=== PATIENT | female | born 2000 | race Caucasian/White ===

== ENCOUNTER 2020-10-09 06:40 | Inpatient (IN) | payer SELFPAY ==
[2020-10-09] VITALS (14 sets, daily range): BP systolic 103–132; BP diastolic 55–72; PULSE 72–106; RESP 14; TEMP 36.7–37.3; O2SAT 98–100; BMI 28.2
[2020-10-09] MEDS: Lactated Ringers 1,000 ML 50 ML IV (06:28)
[2020-10-09 06:59] LABS: Absolute Lymphocyte Count 0.94 X10^3/uL (0.83-4.51); Absolute Neutrophil Count 8.2 X10^3/uL (2.0-7.7); Basophil# 0.02 X10^3/uL; Basophil% 0.2 % (0-1); Eosinophil# 0.01 X10^3/uL; Eosinophils% 0.1 % (0-5); Hematocrit 38.1 % (37-47); Hemoglobin 12.9 g/dL (12.0-15.0); Lymphocyte # 0.94 X10^3/ul (4.0); Lymphocyte % 9.6 % (19-41); Mean Corp Hgb Conc 33.9 g/dL (32-36); Mean Corpuscular Hgb 31.8 pg (27.0-32.0); Mean Corpuscular Volume 93.8 fL (81-99); Mean Platelet Vol. 10.8 fl (6.2-12.0); Monocyte# 0.56 X10^3/uL; Monocyte% 5.7 % (0-10); NRBC Flagged by Analyzer 0 % (0-5); Neutrophil # 8.23 X10^3/uL (2.7-7.7); Neutrophil % 83.8 % (47-70); Platelet Count 179 K/mm3 (150-450); RBC Distribution Width CV 12.3 % (11.6-14.6); RBC Distribution Width SD 42.5 fl (35.1-43.9); Red Blood Count 4.06 M/mm3 (4.2-5.4); White Blood Count 9.8 K/mm3 (4.4-11.0)
[2020-10-09 08:14] LABS: Rubella IgG Non-Reactive (Nonreactive); Syphilis Antibodies Non-reactive
--- NOTE | 2020-10-09 08:22 | HP.PCM_ITS ---
- Problem List (1) Polyhydramnios Status: Acute (2) Active labor Status: Acute (3) Limited care Status: Acute History Date of Admission: 10/09/20 Final ANNIKA: 10/20/20 Final ANNIKA Source: LMP Gestational age: 38 Weeks and 3 Days History of this : This is a 20 year-old, G , P 1, at 38 weeks gestational age presents in active labor. Presents after her seat installer came to evaluate her in labor and felt that her abdomen was extremely large suggesting either a large baby or the possibility of a twin gestation. Reports started ruthy at 1 AM. Was last called 4 cm by her seat installer. Allergies No Known Allergies Allergy (Verified 10/09/20 06:21) Home Medications: Home Medications Calcium 1 tab PO DAILY 10/09/20 Prenatabs FA 1 tab PO DAILY 10/09/20 Vitamin E 1 tab PO DAILY 10/09/20 Smoking Status: Never smoker Alcohol: None Number of Fetus(es): 1 NST - FHR Rate Baby A Baseline: 130 Variability:: Moderate Accelerations:: 15 x 15 Decelerations:: None NST Reactive:: Yes FHR Category:: Category I Uterine Activity:: Every 2-3 minutes History Past Pregnancies: Past Pregnancies Delivery Date Name GA/ Weeks Outcome Route Wt Infant Sex Labor Length Anesthesia Delivery Location Provider FOB Labs: Labs 10/09/20 06:28 WBC 9.8 RBC 4.06 L Hgb 12.9 Hct 38.1 MCV 93.8 MCH 31.8 MCHC 33.9 RDW Std Deviation 42.5 RDW Coeff of Jose Alfredo 12.3 Plt Count 179 MPV 10.8 Immature Gran % (Auto) 0.600 Neut % (Auto) 83.8 H Lymph % (Auto) 9.6 L [place] % (Auto) 5.7 Eos % (Auto) 0.1 Baso % (Auto) 0.2 Absolute Neuts (auto) 8.2 H Absolute Lymphs (auto) 0.94 Nucleated RBC % 0 Mom's Microbiology 10/09/20 Unknown Genital vaginal Group B Streptococcus Culture - Pending 10/09/20 06:28 Mucosa - Nose SARS-CoV-2 Antigen (Rapid) - Final Mom's Labs & Results 10/09/20 10/09/20 10/09/20 06:28 06:28 06:28 WBC 9.8 RBC 4.06 L Hgb 12.9 Hct 38.1 MCV 93.8 MCH 31.8 MCHC 33.9 RDW Std Deviation 42.5 RDW Coeff of Jose Alfredo 12.3 Plt Count 179 MPV 10.8 Immature Gran % (Auto) 0.600 Neut % (Auto) 83.8 H Lymph % (Auto) 9.6 L [place] % (Auto) 5.7 Eos % (Auto) 0.1 Baso % (Auto) 0.2 Absolute Neuts (auto) 8.2 H Absolute Lymphs (auto) 0.94 Nucleated RBC % 0 Hemoglobin A1c Syphilis Total Ab Non-reactive Chlam trachomat DNA PCR Hep Bs Antigen Hepatitis C Antibody HIV 1&2 Antibody N.gonorrhoeae DNA (PCR) Rubella IgG Antibody Non-Reactive Group B Strep DNA Specimen Comment Blood Type Pending Antibody Screen Pending 10/09/20 10/09/20 10/09/20 06:28 06:28 06:28 WBC RBC Hgb Hct MCV MCH MCHC RDW Std Deviation RDW Coeff of Jose Alfredo Plt Count MPV Immature Gran % (Auto) Neut % (Auto) Lymph % (Auto) [place] % (Auto) Eos % (Auto) Baso % (Auto) Absolute Neuts (auto) Absolute Lymphs (auto) Nucleated RBC % Hemoglobin A1c Pending Syphilis Total Ab Chlam trachomat DNA PCR Pending Hep Bs Antigen Pending Hepatitis C Antibody Pending HIV 1&2 Antibody Pending N.gonorrhoeae DNA (PCR) Pending Rubella IgG Antibody Group B Strep DNA Negative Specimen Comment Not Reportable Blood Type Antibody Screen Course Did the patient receive No care? Labs HbSAg Collected on Admission HIV/AIDS Unknown Group B Strep: Collected on Admission Current Obstetrical History Gestational Diabetes No Incompetent Cervix No Infertility No IUGR No Macrosomia No Hypertension/Pre-eclampsia No Placenta Previa/Abruption No PTL/PROM No Uterine anomaly No Oligohydramnios No Polyhydramnios No Multiple gestation No Past Medical History Asthma No Diabetes No Hypertension No Heart disease No Mitral valve prolapse No Neurologic/Seizure disorder/ No Migraines Kidney disease No Liver disease No Varicosities Yes Clotting disorders/Hx of DVT No Thyroid Dysfunction No Other medical diseases No Psychiatric disorders No Major trauma No Abnormal PAP smear No Sleep apnea No Mammogram in the last 2 years No Social History Marital Status: Alleged father Daniel Hx Smoking No Smoking Status Never smoker Expected Delivery Method: Spontaneous Vaginal Review of Systems Constitutional: Denies: Chills, Fever HEENT: Denies: Head Aches, Visual Changes Cardiovascular: Denies: Chest Pain, Light Headedness Respiratory: Denies: Cough, Shortness of Breath Gastrointestinal: Reports: Abdominal Pain. Denies: Nausea, Vomiting Genitourinary: Denies: Dysuria Gynecological: Denies: Vaginal bleeding, Vaginal discharge, Vaginal itching Neurological: Denies: Slurred speech, Confusion Physical Exam Vitals: Vital Signs Temp Pulse BP Pulse Ox 99.1 F 90 119/58 L 98 10/09/20 07:48 10/09/20 07:48 10/09/20 07:48 10/09/20 07:48 General: Alert, Oriented x3, Cooperative, No apparent distress, Well developed, Well nourished HEENT: Atraumatic, PERRLA, EOMI, Normocephalic Cardiovascular: Regular rate Lungs: Normal air movement Abdomen: Soft, Non Tender, Non-Distended, Gravid, Appropriate for Gestational Age Extremities:: No edema Neurological: Cranial nerves II-XII grossly intact, Neuro grossly intact AUTOMATION MACHINE BUILDER: Normal external genitalia Estimated gestational size: Large for gestational age Presentation: Cephalic Cervix Dilation (cm): 6 Station: 0 Effacement (%): 80 Assessment/Plan All Active Problems Polyhydramnios (Acute) Active labor (Acute) Limited care (Acute) This is a 20 year-old, G 2, P 1, at 38 weeks gestational age. Active labor -Patient presents IAL, plan expectant management for , pitocin/AROM PRN if needed -Pain management: Desires natural labor -GBS unknown Size greater than dates -Fundus appears extremely large, but apparent 5 pound baby. -Ultrasound performed and do not see evidence of twin gestation. -On ultrasound, DELON done at bedside and found to be 40. -RN to notify search engine optimization specialist of polyhydramnios with no care. No care -Followed with limited weight throughout -Has never had ultrasound -No care labs ordered on admission
[2020-10-09 08:31] LABS: HIV - WCH Non-Reactive (Nonreactive); Hepatitis B Surface Antigen Non-Reactive (Nonreactive); Hepatitis C Antibody Non-Reactive (Nonreactive)
[2020-10-09 08:34] LABS: Hemoglobin A1c 4.8 % (3.8-5.6)
[2020-10-09] MEDS: Oxytocin 30 units/NS 500 ml 30 UNITS/500 ML IV.SOLN 334 UNITS IV (10:40)
--- NOTE | 2020-10-09 10:57 | OP.PCM_ITS ---
Problem List (1) Active labor Status: Acute (2) Limited care Status: Acute (3) Polyhydramnios Status: Acute Vaginal Delivery Maternal Presentation: Active Labor presented IAL sent in from seaport planning manager due to large fundal height. upon evaluation polyhydramnios was seen with an wendy of 40 Amniotic Membrane Rupture Type: Artificial Amniotic Fluid Description: Clear Final ANNIKA: 10/20/20 Gestational age: 38 Weeks and 4 Days Date of Procedure: 10/09/20 Pre-Operative Diagnosis: ial Post-Operative Diagnosis: same Surgery/ Procedure Performed: Spontaneous Vaginal Delivery Description of Procedure: Patient began pushing and delivered the head in the AGUSTO presentation. The head was delivered atraumatically and a tight nuchal cord ?1 was identified and after anterior shoulder delivery had to be clamped and cut on the perineum. The posterior shoulders delivered without complication followed by the rest of the and the was placed on the maternal abdomen. Delayed cord clamping was employed for approximately 60 seconds. Cord was clamped and cut and gentle traction was applied to the cord and the placenta delivered spontaneously immediately following it was noted to be intact with three-vessel cord. The perineum and vagina were inspected and noted to have no laceration. EBL was 200 cc. Patient and tolerated delivery well. Presentation: AGUSTO Placental Delivery Description: Spontaneous Placenta Disposition: [facility] Cord Vessel Description: 3 Vessels Cord Entanglement: Around neck x 2, tight Estimated Blood Loss: 200 A gender: Male Episiotomy Description: None Laceration: None Medications given after delivery: IV Pitocin Complications: None Multi Select Codes - Urinary/Genital Urinary/Genital CPT Codes: 86381 Vaginal Delivery Only
--- NOTE | 2020-10-09 14:00 | NURSING ---
Patient declined MMR vaccine.
--- NOTE | 2020-10-09 15:28 | NURSING ---
Patient requested that I call her calliope player, Amber Bowling, to give her an update. Amber Bowling notified of patient's vaginal delivery time and date. Delivered intact. Had very high amniotic fluid levels. was AGA and weighed 7 pounds. He is nursing well. I will send a PKU card home with the patient to be completed by Amber Bowling. Amber plans to conduct a home visit tomorrow. Patient requests to go home today at 17:00.
--- NOTE | 2020-10-09 15:57 | DCINST_ITS ---
Discharge Diet: No Restrictions Discharge Activity: Return to Normal Activity, May not drive while taking narcotic pain medications., May Shower May resume sexual activity in: 4-6 weeks Call your doctor if your incision/area has: Continuous Slow Oozing, Sudden Increased Bleeding, Increased Pain/ Swelling, Increased Redness, Foul Smelling Discharge Additional Instructions: If you experience any of the following, contact your healthcare provider. * Bleeding that soaks a pad every hour for 2 hours * Fever 100.4 or higher * Unrelieved incision or abdominal pain * Swelling, redness, discharge or bleeding from your incision or episiotomy site * Your incision begins to separate * Problems urinating (including inability to urinate or burning while urinating). * Visual changes * Severe headache * Flu-like symptoms * Pain or redness in one of both of your breasts * Pain, warmth, tenderness or swelling in your legs, especially the calf area * Frequent nausea and vomiting * Symptoms of depression or anxiety If you experience any of the following, call 911 or go to the nearest Emergency Room. * Chest pain * Problems breathing * Seizure activity * Partial or complete paralysis of a body part, slurred speech, weakness or drooping of the face, or a sudden inability to walk or hold your balance Allergies/Adverse Reactions: Allergies No Known Allergies Allergy (Verified 10/09/20 06:21) Medications to take at Discharge Calcium 1 tab PO DAILY 10/09/20 Prenatabs FA 1 tab PO DAILY 10/09/20 Vitamin E 1 tab PO DAILY 10/09/20 Please Follow Up With: Claudia Horne MD - [phone] When: Call to make an appointment with your doctor in 6 weeks. If you had elevated Blood pressure or 4th degree laceration you will need to be seen in 2 weeks. Primary Care Physician: Colin Carlin DO [Primary Care Provider] - Test Results: Test results from this visit will be discussed in further detail at your follow- up appointment, if applicable.
--- NOTE | 2020-10-09 15:57 | PCM.DCVAG ---
Discharge Diet: No Restrictions Discharge Activity: Return to Normal Activity, May not drive while taking narcotic pain medications., May Shower May resume sexual activity in: 4-6 weeks Call your doctor if your incision/area has: Continuous Slow Oozing, Sudden Increased Bleeding, Increased Pain/ Swelling, Increased Redness, Foul Smelling Discharge Additional Instructions: If you experience any of the following, contact your healthcare provider. Bleeding that soaks a pad every hour for 2 hours Fever 100.4 or higher Unrelieved incision or abdominal pain Swelling, redness, discharge or bleeding from your incision or episiotomy site Your incision begins to separate Problems urinating (including inability to urinate or burning while urinating). Visual changes Severe headache Flu-like symptoms Pain or redness in one of both of your breasts Pain, warmth, tenderness or swelling in your legs, especially the calf area Frequent nausea and vomiting Symptoms of depression or anxiety If you experience any of the following, call 911 or go to the nearest Emergency Room. Chest pain Problems breathing Seizure activity Partial or complete paralysis of a body part, slurred speech, weakness or drooping of the face, or a sudden inability to walk or hold your balance Allergies/Adverse Reactions: Allergies No Known Allergies Allergy (Verified 10/09/20 06:21) Medications to take at Discharge Calcium 1 tab PO DAILY 10/09/20 Prenatabs FA 1 tab PO DAILY 10/09/20 Vitamin E 1 tab PO DAILY 10/09/20 Please Follow Up With: Claudia Horne MD - [phone] When: Call to make an appointment with your doctor in 6 weeks. If you had elevated Blood pressure or 4th degree laceration you will need to be seen in 2 weeks. Primary Care Physician: Colin Carlin DO [Primary Care Provider] - Test Results: Test results from this visit will be discussed in further detail at your follow-up appointment, if applicable.
== END 2020-10-09 17:25 | disposition home or self-care (01) | DRG 807 ==
LOC: WPOUT 06:40 → WP 06:40
PROVIDERS: Obstetrics & Gynecology; Admitting Provider Obstetrics & Gynecology; PCP Family Medicine; Referring Provider Obstetrics & Gynecology; Visit Provider Obstetrics & Gynecology
DX: O40.3XX0 Polyhydramnios, third trimester, not applicable or unspecified (principal); O69.1XX0 Labor and delivery complicated by cord around neck, with compression, not applicable or unspecified; Z20.822 Contact with and (suspected) exposure to COVID-19; Z3A.38 38 weeks gestation of pregnancy; Z37.0 Single live birth
CPT/HCPCS: 59025; 59050; 83036; 85025; 86703; 86762; 86780; 86803; 86850; 86900; 86901; 87081; 87340; 87426; 87491; 87591; 87653; 99218; J7120; G0378